=== PATIENT | male | born 1970 | race Caucasian/White ===

== ENCOUNTER 2021-10-16 06:19 | Day surgery (SDC) | payer BC ==
[2021-10-16] MEDS ORDERED: Lactated Ringers 1,000 ML IV SCH (06:30)
[2021-10-16] MEDS ORDERED: Versed 2 MG/2 ML Injection ONE (07:42)
[2021-10-16] MEDS ORDERED: DIPRIVAN 200 MG/20 ML IV ONE ×2 (07:42→08:10)
[2021-10-16 09:12] VITALS: BP 129/85; PULSE 63; O2SAT 98
--- NOTE | 2021-10-16 09:25 | OP ---
SURGERY DATE/TIME: 10/16/2021 0800 PREOPERATIVE DIAGNOSIS: Rectal bleeding. POSTOPERATIVE DIAGNOSES: 1) Normal EGD. 2) Mild diverticulosis. PROCEDURES: 1) EGD. 2) Colonoscopy. SURGEON: Wilder Watson M.D. ANESTHESIA: MAC by Diego Jay CRNA. ESTIMATED BLOOD LOSS: None. SPECIMENS: None. DESCRIPTION OF PROCEDURE: After informed written consent was obtained, the patient was taken to the endoscopy suite. He underwent monitored anesthesia and a bite block inserted. After anesthesia was titrated to desired level of consciousness, the endoscope was inserted in the posterior oropharynx. Upon direct visualization the esophagus was easily traversed and had a normal mucosal appearance. There was a normal gastroesophageal junction and upon entry into the stomach there was normal rugated gastric mucosa free of any lesions or defects. The pylorus was traversed and the first and second portions of the duodenum had a normal mucosal appearance. Upon withdrawal again all mucosal structures appeared normal. There were no ulcerations. No bleeding. No inflammation or other changes appreciable. The scope was removed and the scopes were switched. Digital rectal exam showed normal sphincter tone and no internal lesions. The scope was inserted in the rectum and sequentially the entire colonic mucosa was traversed. The level of the cecum was reached and verified with direct visualization of the ileocecal valve. Upon withdrawal careful mucosal inspection revealed scattered diverticula but no other abnormalities. Prior to withdrawal retroflexion was performed and showed no internal lesions. The patient was transferred to the recovery room in good condition.
== END 2021-10-16 09:25 | disposition home or self-care (01) ==
LOC: SDC 06:19
PROVIDERS: ATTEND Family Medicine
DX: K57.30 Diverticulosis of large intestine without perforation or abscess without bleeding (principal); E11.8 Type 2 diabetes mellitus with unspecified complications
CPT/HCPCS: 82947; J2250; J2704

== ENCOUNTER 2024-07-21 03:46 | Observation (INO) | payer OTHER ==
--- NOTE | 2024-07-21 04:11 | ERPHSYRPT ---
- History of Present Illness Time Seen by Provider: 07/21/24 04:08 Source: patient Exam Limitations: no limitations Physician History: 53-year-old male diabetic hypercholesterolemia, known coronary artery disease presents to our ED for evaluation of chest pain shortness of breath and diaphoresis that occurred earlier today. Patient states he feels a numbness across his chest. Symptoms have been problematic throughout the day. Patient had a catheterization done just over a year ago. Patient reports he had a 30% blockage and a " maker". Symptoms are mild to moderate in intensity. Patient states his symptoms were most noticeable during exertion. Patient was at work when symptoms started today. Patient otherwise feels well. He voices no other complaints or concerns at this time. Portions of this note were created with voice recognition technology. There may be grammatical, spelling, punctuation or sound alike errors Timing/Duration: today Severity: moderate Modifying Factors: Improves With: nothing Associated Symptoms: denies symptoms Allergies/Adverse Reactions: No Known Drug Allergies Allergy (Verified 07/21/24 04:15) Home Medications: Aspirin 650 mg PO DAILY 02/01/15 [History] Atorvastatin Calcium [Lipitor 40Mg] 40 mg PO DAILY 02/01/15 [History] Metoprolol Succinate 50 mg [Toprol Xl 50 MG] 25 mg PO BID 02/01/15 [History] Metformin HCl 500 mg PO BID 10/14/21 [History] Empagliflozin [Jardiance] 10 mg PO DAILY 07/21/24 [History] Hx Tetanus, Diphtheria Vaccination/Date Given: No Hx Influenza Vaccination/Date Given: No Hx Pneumococcal Vaccination/Date Given: No - Review of Systems Constitutional: No Symptoms, No Fever, No Chills Eyes: No Symptoms Ears, Nose, & Throat: No Symptoms Respiratory: No Symptoms, No Cough, No Dyspnea Cardiac: No Symptoms, No Chest Pain, No Edema, No Syncope Abdominal/Gastrointestinal: No Symptoms, No Abdominal Pain, No Nausea, No Vomiting, No Diarrhea Genitourinary Symptoms: No Symptoms, No Dysuria Musculoskeletal: No Symptoms, No Back Pain, No Neck Pain Skin: No Symptoms, No Rash Neurological: No Symptoms, No Dizziness, No Focal Weakness, No Sensory Changes Psychological: No Symptoms Endocrine: No Symptoms Hematologic/Lymphatic: No Symptoms All Other Systems: Reviewed and Negative - Past Medical History Pertinent Past Medical History: Yes Neurological History: No Pertinent History ENT History: No Pertinent History Cardiac History: Coronary Artery Disease, High Cholesterol, Hypertension Respiratory History: No Pertinent History Endocrine Medical History: No Pertinent History Musculoskeletal History: No Pertinent History GI Medical History: No Pertinent History History: No Pertinent History Psycho-Social History: No Pertinent History Male Reproductive Disorders: No Pertinent History Other Medical History: KIDNEY STONE - Past Surgical History Past Surgical History: Yes Neuro Surgical History: No Pertinent History Cardiac: Cardiac Catheterization Respiratory: No Pertinent History Gastrointestinal: No Pertinent History Genitourinary: Other Musculoskeletal: No Pertinent History Male Surgical History: No Pertinent History Other Surgical History: HEART CATH , cystoscopy with stone removal. - Social History Smoking Status: Never smoker Exposure to second hand smoke: Yes Drug Use: none Patient Lives Alone: No - Nursing Vital Signs Nursing Vital Signs: Initial Vital Signs Temperature 98.0 F 07/21/24 03:49 Pulse Rate 81 07/21/24 03:49 Respiratory Rate 16 07/21/24 03:49 Blood Pressure 138/85 07/21/24 03:49 O2 Sat by Pulse Oximetry 98 07/21/24 03:49 Pain Scale Pain Intensity 2 - Physical Exam General Appearance: no apparent distress, alert Eye Exam: PERRL/EOMI, eyes nml inspection Ears, Nose, Throat Exam: normal ENT inspection, TMs normal, pharynx normal, moist mucous membranes Neck Exam: normal inspection, non-tender, supple, full range of motion Respiratory Exam: normal breath sounds, lungs clear, airway intact, No respi ratory distress Cardiovascular Exam: regular rate/rhythm, normal heart sounds, normal peripheral pulses Gastrointestinal/Abdomen Exam: soft, normal bowel sounds, No tenderness, No mass Back Exam: normal inspection, normal range of motion, No CVA tenderness, No vertebral tenderness Extremity Exam: normal inspection, normal range of motion, pelvis stable Neurologic Exam: alert, oriented x 3, cooperative, normal mood/affect, nml cerebellar function, nml station & gait, sensation nml, No motor deficits Skin Exam: normal color, warm, dry, No rash Lymphatic Exam: No adenopathy SpO2 Interpretation: normal O2 Delivery: Room Air - Course Nursing assessment & vital signs reviewed: Yes EKG Interpreted by Me: RATE (84), Sinus Rhythm, NORMAL AXIS, NORMAL INTERVALS, NORMAL QRS - Radiology Exams Chest X-ray Interpretation: Interpreted by me (No acute findings) Ordered Tests: Active Orders 24 hr Category Date Time Status Final Inspector Balance Wheel STAT Care 07/21/24 03:56 Active EKG-ER Only STAT Care 07/21/24 03:55 Active IV Insertion STAT Care 07/21/24 03:55 Active Pulse Oximetry (ED) STAT Care 07/21/24 03:55 Active CHEST 1 VIEW (PORTABLE) Stat Exams 07/21/24 03:57 Taken CBC W DIFF Stat Lab 07/21/24 03:30 Completed CMP Stat Lab 07/21/24 03:30 Completed NT PRO BNPII Stat Lab 07/21/24 03:30 Completed TROPONIN Q4H Lab 07/21/24 03:30 Completed TROPONIN Q4H Lab 07/21/24 08:00 Ordered TROPONIN Q4H Lab 07/21/24 12:00 Ordered Transfer Order Routine Transfer 07/21/24 Ordered Medication Summary Discontinued Medications Generic Name Dose Route Start Last Admin Trade Name Freq PRN Reason Stop Dose Admin Aspirin 324 mg 07/21/24 03:55 Aspirin 81 Mg Tab.Chew PO 07/21/24 03:56 STAT ONE Lab/Rad Data: Laboratory Result Diagrams 07/21/24 03:30 07/21/24 03:30 Laboratory Results 07/21/24 07/21/24 07/21/24 Range/Units 03:30 03:30 03:30 WBC 6.4 (4.23-9.07) x10^3/uL RBC 5.42 (4.63-6.08) x10^6/uL Hgb 15.1 (13.7-17.5) g/dL Hct 44.9 (40.1-51.0) % MCV 82.8 (79.0-92.2) fL MCH 27.9 (25.7-32.2) pg MCHC 33.6 (32.3-36.5) g/dL RDW 13.3 (11.6-14.4) % Plt Count 146 L (163-337) x10^3/uL MPV 11.1 (9.4-12.4) fL Gran % 45.2 (34.0-67.9) % Immature Gran % (Auto) 0.2 (0.001-0.429) % Nucleat RBC Rel Count 0.0 (0.00-0.2) % Eos # (Auto) 0.04 (0.04-0.54) x10^3/uL Immature Gran # (Auto) 0.01 (0.001-0.031) x10^3u/L Absolute Lymphs (auto) 2.86 (1.32-3.57) x10^3/uL Absolute Monos (auto) 0.54 (0.30-0.82) x10^3/uL Absolute Nucleated RBC 0.00 (0.00-0.012) x10^3u/L Lymphocytes % 44.9 (21.8-53.1) % Monocytes % 8.5 (5.3-12.2) % Eosinophils % 0.6 L (0.8-7.0) % Basophils % 0.6 (0.2-1.2) % Absolute Granulocytes 2.88 (1.78-5.38) x10^3/uL Basophils # 0.04 (0.01-0.08) x10^3/uL Sodium 137 (135-145) mmol/L Potassium 4.0 (3.5-5.1) mmol/L Chloride 99 (98-107) mmol/L Carbon Dioxide 27 (22-30) mmol/L Anion Gap 15.8 H (5-15) MEQ/L BUN 25 H (9-20) mg/dL Creatinine 0.88 (0.66-1.25) mg/dL Estimated GFR 104.1 ML/MIN Glucose 149 H (74-106) mg/dL Calcium 9.7 (8.4-10.2) mg/dL Total Bilirubin 0.80 (0.2-1.3) mg/dL AST 36 (17-59) U/L ALT 43 (0-50) U/L Alkaline Phosphatase 76 (38-126) U/L Troponin I < 0.012 (0.000-0.033) ng/mL NT-Pro-B Natriuret Pep 41.2 (<300) pg/mL Serum Total Protein 8.0 (6.3-8.2) g/dL Albumin 4.8 (3.5-5.0) g/dL - Progress Progress: improved Progress Note: 53-year-old male history of coronary artery disease diabetes hypercholesterolemia presents to our emergency department for evaluation of chest pain shortness of breath and diaphoresis. Patient had a coronary catheterization done approximately a year ago. Patient states his LAD was 30% blocked. Physical exam was essentially unremarkable. EKG sinus rhythm. Initial troponin negative. Vital stable. Patient's heart score is a 4. Patient will require hospitalization for further evaluation and treatment. Portions of this note were created with voice recognition technology. There may be grammatical, spelling, punctuation or sound alike errors Complexity of problem addressed is moderate acute complicated. No critical care time. Complex of data reviewed and analyzed is extensive. Test ordered chest reviewed results analyzed and correlated clinically with history and physical exam. Risk of complication and or risk of morbidity/mortality patient management is high. Patient requires hospitalization for further evaluation and treatment. Vital stable. Time spent admit patient approximately 15 minutes. Plan of care established for shared decision making. No social determinants of health present to impede follow-up. Portions of this note were created with voice recognition technology. There may be grammatical, spelling, punctuation or sound alike errors 07/21/24 05:40 Counseled pt/family regarding: lab results, diagnosis, rad results - Departure Departure Disposition: Observation Clinical Impression: Chest pain, Acute coronary syndrome Condition: Stable Critical Care Time: No Referrals: DOLORES DOHERTY MD [Primary Care Provider] - Follow up/PCP as directed
[2024-07-21 04:16] LABS: Absolute Neutrophil Ct (ANC) 2.88 x10^3/uL (1.78-5.38); BASOPHIL % 0.6 % (0.2-1.2); Basophil (Absolute #) 0.04 x10^3/uL (0.01-0.08); Eosinophil % 0.6 % (0.8-7.0); Eosinophil (Absolute #) 0.04 x10^3/uL (0.04-0.54); Hematocrit 44.9 % (40.1-51.0); Hemoglobin 15.1 g/dL (13.7-17.5); IMMATURE GRAN # 0.01 x10^3u/L (0.001-0.031); IMMATURE GRAN % 0.2 % (0.001-0.429); Lymphocyte (Absolute #) 2.86 x10^3/uL (1.32-3.57); Lymphocytes % 44.9 % (21.8-53.1); Mean Cell Volume 82.8 fL (79.0-92.2); Mean Corpuscular Hemoglobin 27.9 pg (25.7-32.2); Mean Corpuscular Hgb Concent. 33.6 g/dL (32.3-36.5); Mean Platelet Volume 11.1 fL (9.4-12.4); Monocyte (Absolute #) 0.54 x10^3/uL (0.30-0.82); Monocytes % 8.5 % (5.3-12.2); Neutrophil % 45.2 % (34.0-67.9); Platelet Count 146 x10^3/uL (163-337); Red Blood Count 5.42 x10^6/uL (4.63-6.08); Red Cell Distribution Width 13.3 % (11.6-14.4); White Blood Count 6.4 x10^3/uL (4.23-9.07)
[2024-07-21 04:40] LABS: ALBUMIN 4.8 g/dL (3.5-5.0); ANION GAP 15.8 MEQ/L (5-15); BILIRUBIN,TOTAL 0.8 mg/dL (0.2-1.3); Calcium 9.7 mg/dL (8.4-10.2); Creatinine 1 0.88 mg/dL (0.66-1.25); EST GLOMERULAR FILTRATION RATE 104.1 ML/MIN; NT PRO BNPII 41.2 pg/mL (<300)
[2024-07-21] MEDS: BABY ASPIRIN 81 MG CHEW PO ONE (06:01)
[2024-07-21 07:02] VITALS: RESP 16
[2024-07-21] MEDS: Glucophage 500 MG PO SCH (08:16)
--- NOTE | 2024-07-21 08:51 | XRAY ---
Indication: Pain. Comparison: February 11, 2019 Portable chest remains inflated and clear. Heart not enlarged. Bony thorax intact again with degenerative changes. No new/acute findings.
[2024-07-21] MEDS ORDERED: Toprol Xl 50 MG PO SCH (10:00)
[2024-07-21] MEDS ORDERED: LIPITOR 40MG PO SCH (10:00)
[2024-07-21] MEDS ORDERED: NON-FORMULARY ITEM (Aspirin [Aspirin] 325 MG Tablet) PO SCH (10:00)
[2024-07-21] MEDS: Toprol-Xl 25MG Tablets PO SCH (10:13)
[2024-07-21] MEDS: JARDIANCE PO SCH (10:13)
[2024-07-21] MEDS: Ecotrin 325 MG PO SCH (10:13)
--- NOTE | 2024-07-21 11:02 | PCM.SSS ---
History of Present Illness - Chief Complaint Chief Complaint: Chest pain, ACS Date: 07/21/24 History of Present Illness: is a 53 year old male with PMHX diabetic hypercholesterolemia, known coronary artery disease presents. He presented to our ED on 07/21/24 for evaluation of chest pain shortness of breath and diaphoresis that occurred the previous day. Patient states he felt a numbness across his chest. 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 D/T his heart hx and family hx he felt he should come in for evaluation. Symptoms have been problematic throughout the day. Patient had a catheterization done just over a year ago. Patient reports he had a 30% blockage and a " maker". Symptoms are mild to moderate in intensity. Patient states his symptoms were most noticeable during exertion. Patient was at work when symptoms started. Patient otherwise feels well. He voices no other complaints or concerns at this time. He would like to D/C today if trops x3 neagtive. His dog hair clipper is Dr. Pandey. - Review of Systems Constitutional: No Fever, No Chills Eyes: No Symptoms Ears, Nose, & Throat: No Symptoms Respiratory: No Cough, No Short Of Breath Cardiac: Chest Pain, No Edema, No Syncope Abdominal/Gastrointestinal: No Abdominal Pain, No Nausea, No Vomiting, No Diarrhea Genitourinary Symptoms: No Dysuria Musculoskeletal: No Back Pain, No Neck Pain Skin: No Rash Neurological: No Dizziness, No Focal Weakness, No Sensory Changes Psychological: No Symptoms Endocrine: No Symptoms Hematologic/Lymphatic: No Symptoms Immunological/Allergic: No Symptoms Medications & Allergies Home Medications: Home Medication List Aspirin 650 mg PO DAILY 02/01/15 [History Confirmed 07/21/24] Atorvastatin Calcium [Lipitor 40Mg] 40 mg PO BID 02/01/15 [History Confirmed 07/21/24] Metoprolol Succinate 50 mg [Toprol Xl 50 MG] 25 mg PO BID 02/01/15 [History Confirmed 07/21/24] Metformin HCl 500 mg PO BID 10/14/21 [History Confirmed 07/21/24] Empagliflozin [Jardiance] 10 mg PO DAILY 07/21/24 [History Confirmed 07/21/24] Allergies/Adverse Reactions: Allergies Allergy/AdvReac Type Severity Reaction Status Date / Time No Known Drug Allergies Allergy Verified 07/21/24 04:15 - Past Medical History Past Medical History: Yes Neurological History: No Pertinent History ENT History: No Pertinent History Cardiac History: Coronary Artery Disease, High Cholesterol, Hypertension Respiratory History: Pneumonia Endocrine Medical History: Diabetes Type II Musculoskelatal History: No Pertinent History GI Medical History: No Pertinent History History: Other Pyscho-Social History: No Pertinent History Male Reproductive Disorders: No Pertinent History Comment: KIDNEY STONE - Past Surgical History Past Surgical History: Yes Neuro Surgical History: No Pertinent History Cardiac History: Cardiac Catheterization Respiratory Surgery: No Pertinent History GI Surgical History: No Pertinent History Genitourinary Surgical Hx: Other Musculskeletal Surgical Hx: No Pertinent History Male Surgical History: No Pertinent History Other Surgical History: HEART CATH , cystoscopy with stone removal. - Social History Smoking Status: Never smoker Exposure to second hand smoke: Yes Alcohol: Rarely Drug Use: none - Social Determinants of Health Will the patient participate in the screening: Yes Do you worry about a steady place to live?: No Do you have any problems with any of the following?: No known problems In the past 12 months,have you had to go without utilities?: No Have you or anyone in your house had to go without enough: No Transportation Issues: No Has anyone in your support network made you feel unsafe?: No Does the patient want assistance with any of the above?: No - Physical Exam Vital Signs: Vital Signs - 24 hr Temp Pulse Pulse Resp BP BP Pulse Ox 07/21/24 07:01 97.7 F 75 16 133/81 95 07/21/24 06:26 98.0 F 72 13 138/85 98 07/21/24 06:00 72 13 141/76 98 07/21/24 05:30 81 15 115/67 97 07/21/24 05:00 75 9 L 123/73 98 07/21/24 03:55 97 07/21/24 03:49 98.0 F 81 90 16 138/85 98 General Appearance: no apparent distress, alert Neurologic Exam: alert, oriented x 3, cooperative, normal mood/affect, nml cerebellar function, nml station & gait, sensation nml, No motor deficits Eye Exam: PERRL/EOMI, eyes nml inspection Ears, Nose, Throat Exam: normal ENT inspection, TMs normal, pharynx normal, moist mucous membranes Neck Exam: normal inspection, non-tender, supple, full range of motion Respiratory Exam: normal breath sounds, lungs clear, No respiratory distress Cardiovascular Exam: regular rate/rhythm, normal heart sounds, normal peripheral pulses Gastrointestinal/Abdomen Exam: soft, normal bowel sounds, No tenderness, No mass Back Exam: normal inspection, normal range of motion, No CVA tenderness, No vert ebral tenderness Extremity Exam: normal inspection, normal range of motion, pelvis stable Skin Exam: normal color, warm, dry, No rash Lymphatic Exam: No adenopathy Results - Labs Lab/Micro Results: Lab Results-Last 24 Hours 07/21/24 07/21/24 07/21/24 Range/Units 03:30 03:30 03:30 WBC 6.4 (4.23-9.07) x10^3/uL RBC 5.42 (4.63-6.08) x10^6/uL Hgb 15.1 (13.7-17.5) g/dL Hct 44.9 (40.1-51.0) % MCV 82.8 (79.0-92.2) fL MCH 27.9 (25.7-32.2) pg MCHC 33.6 (32.3-36.5) g/dL RDW 13.3 (11.6-14.4) % Plt Count 146 L (163-337) x10^3/uL MPV 11.1 (9.4-12.4) fL Gran % 45.2 (34.0-67.9) % Immature Gran % (Auto) 0.2 (0.001-0.429) % Nucleat RBC Rel Count 0.0 (0.00-0.2) % Eos # (Auto) 0.04 (0.04-0.54) x10^3/uL Immature Gran # (Auto) 0.01 (0.001-0.031) x10^3u/L Absolute Lymphs (auto) 2.86 (1.32-3.57) x10^3/uL Absolute Monos (auto) 0.54 (0.30-0.82) x10^3/uL Absolute Nucleated RBC 0.00 (0.00-0.012) x10^3u/L Lymphocytes % 44.9 (21.8-53.1) % Monocytes % 8.5 (5.3-12.2) % Eosinophils % 0.6 L (0.8-7.0) % Basophils % 0.6 (0.2-1.2) % Absolute Granulocytes 2.88 (1.78-5.38) x10^3/uL Basophils # 0.04 (0.01-0.08) x10^3/uL Sodium 137 (135-145) mmol/L Potassium 4.0 (3.5-5.1) mmol/L Chloride 99 (98-107) mmol/L Carbon Dioxide 27 (22-30) mmol/L Anion Gap 15.8 H (5-15) MEQ/L BUN 25 H (9-20) mg/dL Creatinine 0.88 (0.66-1.25) mg/dL Estimated GFR 104.1 ML/MIN Glucose 149 H (74-106) mg/dL Hemoglobin A1c (4.5-6.0) % Calcium 9.7 (8.4-10.2) mg/dL Total Bilirubin 0.80 (0.2-1.3) mg/dL AST 36 (17-59) U/L ALT 43 (0-50) U/L Alkaline Phosphatase 76 (38-126) U/L Troponin I < 0.012 (0.000-0.033) ng/mL NT-Pro-B Natriuret Pep 41.2 (<300) pg/mL Serum Total Protein 8.0 (6.3-8.2) g/dL Albumin 4.8 (3.5-5.0) g/dL 07/21/24 07/21/24 Range/Units 05:15 08:15 WBC (4.23-9.07) x10^3/uL RBC (4.63-6.08) x10^6/uL Hgb (13.7-17.5) g/dL Hct (40.1-51.0) % MCV (79.0-92.2) fL MCH (25.7-32.2) pg MCHC (32.3-36.5) g/dL RDW (11.6-14.4) % Plt Count (163-337) x10^3/uL MPV (9.4-12.4) fL Gran % (34.0-67.9) % Immature Gran % (Auto) (0.001-0.429) % Nucleat RBC Rel Count (0.00-0.2) % Eos # (Auto) (0.04-0.54) x10^3/uL Immature Gran # (Auto) (0.001-0.031) x10^3u/L Absolute Lymphs (auto) (1.32-3.57) x10^3/uL Absolute Monos (auto) (0.30-0.82) x10^3/uL Absolute Nucleated RBC (0.00-0.012) x10^3u/L Lymphocytes % (21.8-53.1) % Monocytes % (5.3-12.2) % Eosinophils % (0.8-7.0) % Basophils % (0.2-1.2) % Absolute Granulocytes (1.78-5.38) x10^3/uL Basophils # (0.01-0.08) x10^3/uL Sodium (135-145) mmol/L Potassium (3.5-5.1) mmol/L Chloride (98-107) mmol/L Carbon Dioxide (22-30) mmol/L Anion Gap (5-15) MEQ/L BUN (9-20) mg/dL Creatinine (0.66-1.25) mg/dL Estimated GFR ML/MIN Glucose (74-106) mg/dL Hemoglobin A1c 5.92 (4.5-6.0) % Calcium (8.4-10.2) mg/dL Total Bilirubin (0.2-1.3) mg/dL AST (17-59) U/L ALT (0-50) U/L Alkaline Phosphatase (38-126) U/L Troponin I < 0.012 (0.000-0.033) ng/mL NT-Pro-B Natriuret Pep (<300) pg/mL Serum Total Protein (6.3-8.2) g/dL Albumin (3.5-5.0) g/dL - Radiology Impressions Radiology Exams & Impressions: Radiology Procedures Category Date Time Status CHEST 1 VIEW (PORTABLE) Stat Exams 07/21/24 03:57 Completed Assessment/Plan (1) Chest pain Current Visit: Yes Status: Acute Assessment & Plan: - Follows Dr. Pandey - Trend trops if all negative can d/c today - EKG - Tele - CXR negative - TSH - Likely 2:2 heavy lifting at job - F/u with cardiology OP Code(s): R07.9 - CHEST PAIN, UNSPECIFIED (2) Type II diabetes mellitus Current Visit: Yes Status: Chronic Assessment & Plan: - A1C 5.92- controlled - Continue home meds - carb consistent diet (3) Hyperlipemia Current Visit: Yes Status: Acute Assessment & Plan: - Continue statin Code(s): E78.5 - HYPERLIPIDEMIA, UNSPECIFIED (4) Obesity (BMI 30.0-34.9) Current Visit: Yes Status: Acute Assessment & Plan: - advised diet and exercise control Code(s): E66.9 - OBESITY, UNSPECIFIED Hospital Summary - Hospital Course Hospital Course: is a 53 year old male with PMHX diabetic hypercholesterolemia, known coronary artery disease presents. He presented to our ED on 07/21/24 for evaluation of chest pain shortness of breath and diaphoresis that occurred the previous day. Patient states he felt a numbness across his chest. 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 D/T his heart hx and family hx he felt he should come in for evaluation. Symptoms have been problematic throughout the day. Patient had a catheterization done just over a year ago. Patient reports he had a 30% blockage and a " maker". Symptoms are mild to moderate in intensity. Patient states his symptoms were most noticeable during exertion. Patient was at work when symptoms started. Patient otherwise feels well. He voices no other complaints or concerns at this time. He would like to D/C today if trops x3 neagtive. His dog hair clipper is Dr. Pandey. - Vitals & Intake/Output Vital Signs: Vital Signs Temperature 97.7 F 07/21/24 07:01 Pulse Rate 75 07/21/24 07:01 Respiratory Rate 16 07/21/24 07:01 Blood Pressure 133/81 07/21/24 07:01 O2 Sat by Pulse Oximetry 95 07/21/24 07:01 Intake & Output: Intake & Output 07/18/24 07/19/24 07/20/24 07/21/24 11:59 11:59 11:59 11:59 Intake Total 380 Balance 380 Weight 107.7 kg - Lab Result Diagrams: 07/21/24 03:30 07/21/24 03:30 Lab Results-Last 24 Hrs: Lab Results-Last 24 Hours 07/21/24 07/21/24 07/21/24 Range/Units 03:30 03:30 03:30 WBC 6.4 (4.23-9.07) x10^3/uL RBC 5.42 (4.63-6.08) x10^6/uL Hgb 15.1 (13.7-17.5) g/dL Hct 44.9 (40.1-51.0) % MCV 82.8 (79.0-92.2) fL MCH 27.9 (25.7-32.2) pg MCHC 33.6 (32.3-36.5) g/dL RDW 13.3 (11.6-14.4) % Plt Count 146 L (163-337) x10^3/uL MPV 11.1 (9.4-12.4) fL Gran % 45.2 (34.0-67.9) % Immature Gran % (Auto) 0.2 (0.001-0.429) % Nucleat RBC Rel Count 0.0 (0.00-0.2) % Eos # (Auto) 0.04 (0.04-0.54) x10^3/uL Immature Gran # (Auto) 0.01 (0.001-0.031) x10^3u/L Absolute Lymphs (auto) 2.86 (1.32-3.57) x10^3/uL Absolute Monos (auto) 0.54 (0.30-0.82) x10^3/uL Absolute Nucleated RBC 0.00 (0.00-0.012) x10^3u/L Lymphocytes % 44.9 (21.8-53.1) % Monocytes % 8.5 (5.3-12.2) % Eosinophils % 0.6 L (0.8-7.0) % Basophils % 0.6 (0.2-1.2) % Absolute Granulocytes 2.88 (1.78-5.38) x10^3/uL Basophils # 0.04 (0.01-0.08) x10^3/uL Sodium 137 (135-145) mmol/L Potassium 4.0 (3.5-5.1) mmol/L Chloride 99 (98-107) mmol/L Carbon Dioxide 27 (22-30) mmol/L Anion Gap 15.8 H (5-15) MEQ/L BUN 25 H (9-20) mg/dL Creatinine 0.88 (0.66-1.25) mg/dL Estimated GFR 104.1 ML/MIN Glucose 149 H (74-106) mg/dL Hemoglobin A1c (4.5-6.0) % Calcium 9.7 (8.4-10.2) mg/dL Total Bilirubin 0.80 (0.2-1.3) mg/dL AST 36 (17-59) U/L ALT 43 (0-50) U/L Alkaline Phosphatase 76 (38-126) U/L Troponin I < 0.012 (0.000-0.033) ng/mL NT-Pro-B Natriuret Pep 41.2 (<300) pg/mL Serum Total Protein 8.0 (6.3-8.2) g/dL Albumin 4.8 (3.5-5.0) g/dL 07/21/24 07/21/24 Range/Units 05:15 08:15 WBC (4.23-9.07) x10^3/uL RBC (4.63-6.08) x10^6/uL Hgb (13.7-17.5) g/dL Hct (40.1-51.0) % MCV (79.0-92.2) fL MCH (25.7-32.2) pg MCHC (32.3-36.5) g/dL RDW (11.6-14.4) % Plt Count (163-337) x10^3/uL MPV (9.4-12.4) fL Gran % (34.0-67.9) % Immature Gran % (Auto) (0.001-0.429) % Nucleat RBC Rel Count (0.00-0.2) % Eos # (Auto) (0.04-0.54) x10^3/uL Immature Gran # (Auto) (0.001-0.031) x10^3u/L Absolute Lymphs (auto) (1.32-3.57) x10^3/uL Absolute Monos (auto) (0.30-0.82) x10^3/uL Absolute Nucleated RBC (0.00-0.012) x10^3u/L Lymphocytes % (21.8-53.1) % Monocytes % (5.3-12.2) % Eosinophils % (0.8-7.0) % Basophils % (0.2-1.2) % Absolute Granulocytes (1.78-5.38) x10^3/uL Basophils # (0.01-0.08) x10^3/uL Sodium (135-145) mmol/L Potassium (3.5-5.1) mmol/L Chloride (98-107) mmol/L Carbon Dioxide (22-30) mmol/L Anion Gap (5-15) MEQ/L BUN (9-20) mg/dL Creatinine (0.66-1.25) mg/dL Estimated GFR ML/MIN Glucose (74-106) mg/dL Hemoglobin A1c 5.92 (4.5-6.0) % Calcium (8.4-10.2) mg/dL Total Bilirubin (0.2-1.3) mg/dL AST (17-59) U/L ALT (0-50) U/L Alkaline Phosphatase (38-126) U/L Troponin I < 0.012 (0.000-0.033) ng/mL NT-Pro-B Natriuret Pep (<300) pg/mL Serum Total Protein (6.3-8.2) g/dL Albumin (3.5-5.0) g/dL - Radiology Exams Ordered Rad Exams-Entire Visit: Radiology Procedures Category Date Time Status CHEST 1 VIEW (PORTABLE) Stat Exams 07/21/24 03:57 Completed - Discharge Discharge Date: 07/21/24 Disposition: Home, Self-Care Condition: Stable Prescriptions: Continue Metoprolol Succinate 50 mg [Toprol Xl 50 MG] 25 mg PO BID Atorvastatin Calcium [Lipitor 40Mg] 40 mg PO BID Aspirin 650 mg PO DAILY Metformin HCl 500 mg PO BID Empagliflozin [Jardiance] 10 mg PO DAILY Instructions: Chest pain - Discharge instructions Follow up with: DOLORES DOHERTY MD [Primary Care Provider] - 08/03/24 10:45 am
[2024-07-21 11:20] VITALS: BP 129/67; PULSE 63; TEMP 97.8; O2SAT 99
== END 2024-07-21 13:32 | disposition home or self-care (01) ==
LOC: ED 03:46 → MED SURG 06:23
PROVIDERS: ADMIT Internal Medicine; ATTEND Internal Medicine
DX: R07.9 Chest pain, unspecified (principal); E11.9 Type 2 diabetes mellitus without complications; E78.5 Hyperlipidemia, unspecified; E66.9 Obesity, unspecified; I25.10 Atherosclerotic heart disease of native coronary artery without angina pectoris; R06.02 Shortness of breath; I10 Essential (primary) hypertension; Z79.899 Other long term (current) drug therapy
CPT/HCPCS: 36000; 36415; 71045; 80053; 83036; 83880; 84443; 84484; 85025; 93005; 93041; 93268; 94760; 99284; Q3014; A9270-GY; G0378

== ENCOUNTER 2024-11-18 10:31 | Emergency (ER) | payer OTHER ==
[2024-11-18 10:43] VITALS: TEMP 97.2
[2024-11-18] MEDS ORDERED: BABY ASPIRIN 81 MG CHEW ONE (10:53)
[2024-11-18] MEDS: BABY ASPIRIN 81 MG CHEW PO ONE (10:54)
--- NOTE | 2024-11-18 11:04 | ERPHSYRPT ---
- History of Present Illness Time Seen by Provider: 11/18/24 10:35 Historian: patient Exam Limitations: no limitations Patient Subjective Stated Complaint: PT HERE FOR PAIN TO CENTER OF CHEST THAT RADIATES TO LEFT AREM AND STATES HE WAS PAIN TO LEFT EYE, DENIES ANY INJURY Triage Nursing Assessment: PT ALERT, WALKED IN, RESP EASY, SKIN W/D/P. CHEST CLEAR, ABD SOFT, NO EDEMA NOTED Physician History: This is an anxious 53-year-old white male patient of Dr. Doherty and machine zipper trimmer Dr. Arora has multiple complaints including achiness in his chest. The pain pattern he reports to me is the pain is in the left upper quadrant and radiates into the central substernal region. It is an ache. He states the pain is not in his left upper extremity as reported to the nurse. He also does complain of intermittent pain in his left eye but no vision changes. Patient was seen here July 21, 2024 for chest pain and the workup showed no acute process. He was seen by his machine zipper trimmer in early July 2024 and was found to have 30% blockage in the LAD. He had a negative stress test as well. Patient has also had discussions regarding chronic intermittent chest pain with his primary care provider. On 07/21/2020 for his twelve-lead EKG shows normal sinus rhythm with a heart rate of 84 bpm and a QTc of 434. Patient has a history of hyperlipidemia, hypertension and diabetes. Timing/Duration: today Activities at Onset: none Quality: aching Location: abdomen (Per patient report to me, the pain begins in left upper quadrant then radiates into the central substernal region.) Severity of Pain-Max: mild Severity of Pain-Current: mild Modifying Factors: Improves With: nothing Associated Symptoms: denies symptoms Prior Chest Pain/Cardiac Workup: echocardiography, stress test Nitro Today/Relief: no nitro taken today Aspirin Treatment Today: provided at home (Patient medication list states aspirin 650 mg daily) Allergies/Adverse Reactions: No Known Drug Allergies Allergy (Verified 11/18/24 10:32) Home Medications: Aspirin 650 mg PO DAILY 02/01/15 [History] Atorvastatin Calcium [Lipitor 40Mg] 40 mg PO BID 02/01/15 [History] Metformin HCl 500 mg PO BID 10/14/21 [History] Empagliflozin [Jardiance] 10 mg PO DAILY 07/21/24 [History] Metoprolol Tartrate 25 mg [Lopressor 25MG Tab] 25 mg PO BID 07/21/24 [History] Hx Tetanus, Diphtheria Vaccination/Date Given: No Hx Influenza Vaccination/Date Given: No Hx Pneumococcal Vaccination/Date Given: No Immunizations Up to Date: No Travel Risk - International Travel Have you traveled outside of the country in past 3 weeks: No - Emerging Infectious Disease Are you exhibiting symptoms associated with any current EIDs: No - Review of Systems Constitutional: No Symptoms Eyes: No Symptoms Ears, Nose, & Throat: No Symptoms Respiratory: No Symptoms Cardiac: Chest Pain Abdominal/Gastrointestinal: No Symptoms Genitourinary Symptoms: No Symptoms Musculoskeletal: No Symptoms Skin: No Symptoms Neurological: No Symptoms Psychological: No Symptoms Endocrine: No Symptoms Hematologic/Lymphatic: No Symptoms Immunological/Allergic: No Symptoms All Other Systems: Reviewed and Negative - Past Medical History Pertinent Past Medical History: Yes Neurological History: No Pertinent History ENT History: No Pertinent History Cardiac History: Coronary Artery Disease, High Cholesterol, Hypertension Respiratory History: Pneumonia Endocrine Medical History: Diabetes Type II Musculoskeletal History: No Pertinent History GI Medical History: No Pertinent History History: Other Psycho-Social History: No Pertinent History Male Reproductive Disorders: No Pertinent History Other Medical History: 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 - Social History Smoking Status: Never smoker Exposure to second hand smoke: No Drug Use: none Patient Lives Alone: No - Social Determinants of Health Will the patient participate in the screening: Yes Do you worry about a steady place to live?: No Do you have any problems with any of the following?: No known problems In the past 12 months,have you had to go without utilities?: No Transportation Issues: No Has anyone in your support network made you feel unsafe?: No Have you or anyone in your house had to go without enough: No - Nursing Vital Signs Nursing Vital Signs: Initial Vital Signs Temperature 97.2 F 11/18/24 10:32 Pulse Rate 79 11/18/24 10:32 Respiratory Rate 16 11/18/24 10:32 Blood Pressure 154/96 11/18/24 10:32 O2 Sat by Pulse Oximetry 98 11/18/24 10:32 Pain Scale Pain Intensity 0 - Physical Exam General Appearance: no apparent distress, alert, anxiety Eye Exam: PERRL/EOMI, eyes nml inspection Ears, Nose, Throat Exam: normal ENT inspection, moist mucous membranes Neck Exam: normal inspection, non-tender, supple, full range of motion Respiratory Exam: normal breath sounds, chest tenderness, lungs clear, airway intact, No respiratory distress Cardiovascular Exam: regular rate/rhythm, normal heart sounds, normal peripheral pulses Gastrointestinal/Abdomen Exam: soft, normal bowel sounds, No tenderness Rectal Exam: not done Back Exam: normal inspection, normal range of motion, No CVA tenderness, No vertebral tenderness Extremity Exam: normal inspection, normal range of motion, pelvis stable Neurologic Exam: alert, oriented x 3, cooperative, preparole counseling aide II-XII nml as tested, nml cerebellar function, nml station & gait, sensation nml Skin Exam: normal color, warm, dry Lymphatic Exam: No adenopathy SpO2 Interpretation: normal SpO2: 98 O2 Delivery: Room Air - Course Nursing assessment & vital signs reviewed: Yes EKG Interpreted by Me: RATE (81), Sinus Rhythm, NORMAL AXIS, NORMAL INTERVALS, NORMAL QRS, NORMAL ST-T, Other (No acute ischemic changes. QTc is 412. No change from twelve-lead EKG dated 07/21/2024) Ordered Tests: Active Orders 24 hr Category Date Time Status Scaling Machine Operator STAT Care 11/18/24 10:38 Active EKG-ER Only STAT Care 11/18/24 10:37 Active IV Insertion STAT Care 11/18/24 10:37 Active Pulse Oximetry (ED) STAT Care 11/18/24 10:37 Active CBC W DIFF Stat Lab 11/18/24 10:55 Completed CMP Stat Lab 11/18/24 10:55 Completed D-DIMER QUANTITATIVE Stat Lab 11/18/24 10:55 Received MAGNESIUM Stat Lab 11/18/24 10:55 Completed PROTIME WITH INR Stat Lab 11/18/24 10:55 Received TROPONIN Q4H Lab 11/18/24 10:55 Completed TROPONIN Q4H Lab 11/18/24 14:45 Ordered TROPONIN Q4H Lab 11/18/24 18:45 Ordered Medication Summary Discontinued Medications Generic Name Dose Route Start Last Admin Trade Name Freq PRN Reason Stop Dose Admin Aspirin 324 mg 11/18/24 10:37 11/18/24 10:54 Aspirin 81 Mg Tab.Chew PO 11/18/24 10:38 324 mg STAT ONE Administration Aspirin Confirm 11/18/24 10:53 Aspirin 81 Mg Tab.Chew Administered 11/18/24 10:54 Dose 324 mg .ROUTE .STK-MED ONE Lab/Rad Data: Laboratory Result Diagrams 11/18/24 10:55 11/18/24 10:55 Laboratory Results 11/18/24 11/18/24 11/18/24 Range/Units 10:55 10:55 10:55 WBC 7.4 (4.23-9.07) x10^3/uL RBC 5.55 (4.63-6.08) x10^6/uL Hgb 15.6 (13.7-17.5) g/dL Hct 45.4 (40.1-51.0) % MCV 81.8 (79.0-92.2) fL MCH 28.1 (25.7-32.2) pg MCHC 34.4 (32.3-36.5) g/dL RDW 13.1 (11.6-14.4) % Plt Count 134 L (163-337) x10^3/uL MPV 11.1 (9.4-12.4) fL Gran % 57.6 (34.0-67.9) % Immature Gran % (Auto) 0.3 (0.001-0.429) % Nucleat RBC Rel Count 0.0 (0.00-0.2) % Eos # (Auto) 0.01 L (0.04-0.54) x10^3/uL Immature Gran # (Auto) 0.02 (0.001-0.031) x10^3u/L Absolute Lymphs (auto) 2.66 (1.32-3.57) x10^3/uL Absolute Monos (auto) 0.42 (0.30-0.82) x10^3/uL Absolute Nucleated RBC 0.00 (0.00-0.012) x10^3u/L Lymphocytes % 35.9 (21.8-53.1) % Monocytes % 5.7 (5.3-12.2) % Eosinophils % 0.1 L (0.8-7.0) % Basophils % 0.4 (0.2-1.2) % Absolute Granulocytes 4.26 (1.78-5.38) x10^3/uL Basophils # 0.03 (0.01-0.08) x10^3/uL Sodium 136 (135-145) mmol/L Potassium 4.8 (3.5-5.1) mmol/L Chloride 105 (98-107) mmol/L Carbon Dioxide 24 (22-30) mmol/L Anion Gap 11.9 (5-15) MEQ/L BUN 32 H (9-20) mg/dL Creatinine 0.87 (0.66-1.25) mg/dL Estimated GFR 104.5 ML/MIN Glucose 108 H (74-106) mg/dL Calcium 9.8 (8.4-10.2) mg/dL Magnesium 2.0 (1.6-2.3) mg/dL Total Bilirubin 0.80 (0.2-1.3) mg/dL AST 30 (17-59) U/L ALT 34 (0-50) U/L Alkaline Phosphatase 66 (38-126) U/L Troponin I < 0.012 (0.000-0.033) ng/mL Serum Total Protein 7.6 (6.3-8.2) g/dL Albumin 4.6 (3.5-5.0) g/dL - Progress Progress: improved, re-examined Air Movement: good Progress Note: 11/18/24 14:00 My medical decision making and the assignment of moderate complexity to this patient's medical issue today is based on review of the patient's past medical history, review of patient's medication list, review the patient drug allergy list, history present illness and physical findings on examination. The workup in this patient includes twelve-lead EKG, CBC, CMP, troponin, magnesium, PT/INR, D-dimer level. Differential diagnosis includes anxiety about health, myocardial infarction, arrhythmia, electrolyte abnormalities, pulmonary embolism I interpreted the patient's laboratory data results. Based on the laboratory data results, the patient has no acute, emergent medical issue. Blood Culture(s) Obtained: No Antibiotics given: No Counseled pt/family regarding: lab results, diagnosis, need for follow-up Medical Desision Making - Diagnostic Testing Diagnostic test were ordered, analyzed, and reviewed by me: Yes - Risk of complications Minimal Risk: Minimal risk of morbidity - Departure Departure Disposition: Home Clinical Impression: Nonspecific chest pain Condition: Stable Critical Care Time: No Referrals: DOLORES DOHERTY MD [Primary Care Provider] - Follow up/PCP as directed Additional Instructions: Take all your medications as prescribed. Call your primary care provider and machine zipper trimmer today, 11/18/2024, to make arrangements for outpatient follow-up and evaluation to be seen in the next 5 to 7 days
[2024-11-18 11:07] LABS: Absolute Neutrophil Ct (ANC) 4.26 x10^3/uL (1.78-5.38); BASOPHIL % 0.4 % (0.2-1.2); Basophil (Absolute #) 0.03 x10^3/uL (0.01-0.08); Eosinophil % 0.1 % (0.8-7.0); Eosinophil (Absolute #) 0.01 x10^3/uL (0.04-0.54); Hematocrit 45.4 % (40.1-51.0); Hemoglobin 15.6 g/dL (13.7-17.5); IMMATURE GRAN # 0.02 x10^3u/L (0.001-0.031); IMMATURE GRAN % 0.3 % (0.001-0.429); Lymphocyte (Absolute #) 2.66 x10^3/uL (1.32-3.57); Lymphocytes % 35.9 % (21.8-53.1); Mean Cell Volume 81.8 fL (79.0-92.2); Mean Corpuscular Hemoglobin 28.1 pg (25.7-32.2); Mean Corpuscular Hgb Concent. 34.4 g/dL (32.3-36.5); Mean Platelet Volume 11.1 fL (9.4-12.4); Monocyte (Absolute #) 0.42 x10^3/uL (0.30-0.82); Monocytes % 5.7 % (5.3-12.2); Neutrophil % 57.6 % (34.0-67.9); Platelet Count 134 x10^3/uL (163-337); Red Blood Count 5.55 x10^6/uL (4.63-6.08); Red Cell Distribution Width 13.1 % (11.6-14.4); White Blood Count 7.4 x10^3/uL (4.23-9.07)
[2024-11-18 11:14] LABS: ALBUMIN 4.6 g/dL (3.5-5.0); ANION GAP 11.9 MEQ/L (5-15); BILIRUBIN,TOTAL 0.8 mg/dL (0.2-1.3); Calcium 9.8 mg/dL (8.4-10.2); Creatinine 1 0.87 mg/dL (0.66-1.25); EST GLOMERULAR FILTRATION RATE 104.5 ML/MIN; Potassium 4.8 mmol/L (3.5-5.1); Total Protein 7.6 g/dL (6.3-8.2)
[2024-11-18 13:06] VITALS: PULSE 70; O2SAT 98
[2024-11-18 14:03] VITALS: BP 130/78; RESP 18
== END 2024-11-18 14:22 | disposition home or self-care (01) ==
LOC: ED 10:31
DX: R07.9 Chest pain, unspecified (principal); E78.5 Hyperlipidemia, unspecified; I10 Essential (primary) hypertension; E11.9 Type 2 diabetes mellitus without complications
CPT/HCPCS: 36415; 80053; 83735; 84484; 85025; 85379; 85610; 93005; 93041; 94760; 99284; A9270-GY

== ENCOUNTER 2025-03-26 12:16 | Emergency (ER) | payer OTHER ==
[2025-03-26 12:42] VITALS: TEMP 97
[2025-03-26] MEDS ORDERED: Sodium Chloride 0.9% 1000 ML 1,000 ML ONE (12:45)
[2025-03-26] MEDS: Sodium Chloride 0.9% 1000 ML 1,000 ML IV STA (12:45)
[2025-03-26 12:50] LABS: Hematocrit 47.7 % (40.1-51.0); Hemoglobin 17.5 g/dL (13.7-17.5); Mean Cell Volume 76.7 fL (79.0-92.2); Mean Corpuscular Hemoglobin 28.1 pg (25.7-32.2); Mean Corpuscular Hgb Concent. 36.7 g/dL (32.3-36.5); Mean Platelet Volume 11.7 fL (9.4-12.4); Platelet Count 81 x10^3/uL (163-337); Red Blood Count 6.22 x10^6/uL (4.63-6.08); Red Cell Distribution Width 12.9 % (11.6-14.4); White Blood Count 5.8 x10^3/uL (4.23-9.07)
--- NOTE | 2025-03-26 13:07 | ERPHSYRPT ---
- History of Present Illness Patient Subjective Stated Complaint: Pt. reports, "I just haven't felt good since Thursday, I feel nauseas, but I haven't vomited. I get headaches off and on and dizziness off and on. I just feel really tired and just off." Triage Nursing Assessment: Pt. ambulated to room without diff., A&Ox3, skin p/w/d, resp even unlabored, abd. soft nontender, bs + x4 quads. No edema. Physician History: Patient is 54-year-old male with significant past medical history of hypertension diabetes started feeling sick feeling since Thursday initially he was having generalized body ache some weakness spells and chills he felt little bit feverish but did not report any fever also has not not feeling well. He denies any chest pain nausea vomiting diarrhea blood in the stool or urine dizziness headache shortness of breath. Patient was taking metformin for diabetes but he stopped taking 1 month ago because he has heard lots of bad things about metformin on Internet but he started back 2 days ago. Timing/Duration: day(s) (4-5 days) Associated Symptoms: chills, headaches, malaise, weakness, No nausea, No vomiting, No abdominal pain, No shortness of breath, No heartburn, No diaphoresis, No cough, No chest pain, No fever, No loss of appetite, No rash, No syncope, No seizure Allergies/Adverse Reactions: No Known Drug Allergies Allergy (Verified 11/18/24 10:32) Home Medications: Aspirin 325 mg PO DAILY 02/01/15 [History] Atorvastatin Calcium [Lipitor 40Mg] 40 mg PO DAILY 02/01/15 [History] Metformin HCl 500 mg PO BID 10/14/21 [History] Empagliflozin [Jardiance] 10 mg PO DAILY 07/21/24 [History] Metoprolol Tartrate 25 mg [Lopressor 25MG Tab] 25 mg PO BID 07/21/24 [History] Fexofenadine HCl [Kim Allergy] 180 mg PO DAILY 03/26/25 [History] Hx Tetanus, Diphtheria Vaccination/Date Given: No Hx Influenza Vaccination/Date Given: No Hx Pneumococcal Vaccination/Date Given: No Immunizations Up to Date: No Travel Risk - International Travel Have you traveled outside of the country in past 3 weeks: No - Emerging Infectious Disease Are you exhibiting symptoms associated with any current EIDs: No - Review of Systems Constitutional: Lethargy, Malaise, Weakness, No Fever, No Chills Eyes: No Symptoms Ears, Nose, & Throat: No Symptoms Respiratory: No Cough, No Dyspnea Cardiac: No Chest Pain, No Edema, No Syncope Abdominal/Gastrointestinal: No Abdominal Pain, No Nausea, No Vomiting, No Diarrhea Genitourinary Symptoms: No Dysuria Musculoskeletal: No Back Pain, No Neck Pain, No Fall Skin: No Rash Neurological: Dizziness, Headache, No Focal Weakness, No Sensory Changes Psychological: No Symptoms Endocrine: No Symptoms All Other Systems: Reviewed and Negative - Past Medical History Pertinent Past Medical History: Yes Neurological History: No Pertinent History ENT History: No Pertinent History Cardiac History: Coronary Artery Disease, High Cholesterol, Hypertension Respiratory History: Pneumonia Endocrine Medical History: Diabetes Type II Musculoskeletal History: No Pertinent History GI Medical History: No Pertinent History History: Other Psycho-Social History: No Pertinent History Male Reproductive Disorders: No Pertinent History Other Medical History: 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 - Social History Smoking Status: Never smoker Exposure to second hand smoke: No Drug Use: none - Social Determinants of Health Will the patient participate in the screening: Yes Do you worry about a steady place to live?: No Do you have any problems with any of the following?: No known problems In the past 12 months,have you had to go without utilities?: No Transportation Issues: No Has anyone in your support network made you feel unsafe?: No Have you or anyone in your house had to go w/o enough food: No - Nursing Vital Signs Nursing Vital Signs: Initial Vital Signs Temperature 97.0 F 03/26/25 12:17 Pulse Rate 99 H 03/26/25 12:17 Respiratory Rate 18 03/26/25 12:17 Blood Pressure 133/109 03/26/25 12:17 O2 Sat by Pulse Oximetry 99 03/26/25 12:17 Pain Scale Pain Intensity 0 - Physical Exam General Appearance: no apparent distress, alert Eye Exam: PERRL/EOMI, eyes nml inspection Ears, Nose, Throat Exam: normal ENT inspection, TMs normal, pharynx normal, moist mucous membranes Neck Exam: normal inspection, non-tender, supple, full range of motion Respiratory Exam: normal breath sounds, lungs clear, No respiratory distress Cardiovascular Exam: regular rate/rhythm, normal heart sounds, normal peripheral pulses Gastrointestinal/Abdomen Exam: soft, normal bowel sounds, No tenderness, No mass Rectal Exam: deferred Back Exam: normal inspection, normal range of motion, No CVA tenderness, No vertebral tenderness Extremity Exam: normal inspection, normal range of motion, pelvis stable Neurologic Exam: alert, oriented x 3, cooperative, normal mood/affect, nml cerebellar function, nml station & gait, sensation nml, No motor deficits Skin Exam: normal color, warm, dry, No rash Lymphatic Exam: No adenopathy SpO2 Interpretation: normal SpO2: 98 O2 Delivery: Room Air - Course Nursing assessment & vital signs reviewed: Yes EKG Interpreted by Me: Sinus Rhythm Ordered Tests: Active Orders 24 hr Category Date Time Status EKG-ER Only STAT Care 03/26/25 12:32 Active CBC W DIFF Stat Lab 03/26/25 12:35 Completed CMP Stat Lab 03/26/25 12:35 Completed Manual Differential NC Stat Lab 03/26/25 12:35 Completed POCT GLUCOSE Stat Lab 03/26/25 12:30 Completed TSH [TSH, 3RD Generation] Stat Lab 03/26/25 12:35 Received UA W/RFX UR CULTURE Stat Lab 03/26/25 14:04 Ordered Medication Summary Discontinued Medications Generic Name Dose Route Start Last Admin Trade Name Elizabeth PRN Reason Stop Dose Admin Sodium Chloride 1,000 mls @ 999 mls/hr 03/26/25 12:32 03/26/25 14:02 Sodium Chloride 0.9% 1000 Ml IV 03/26/25 13:32 Infused .Q1H1M STA Infusion Sodium Chloride Confirm 03/26/25 12:45 Sodium Chloride 0.9% 1000 Ml Administered 03/26/25 12:46 Dose 1,000 mls @ ud .ROUTE .STK-MED ONE Lab/Rad Data: Laboratory Result Diagrams 03/26/25 12:35 03/26/25 12:35 Laboratory Results 03/26/25 03/26/25 03/26/25 Range/Units 12:40 12:35 12:35 WBC (4.23-9.07) x10^3/uL RBC (4.63-6.08) x10^6/uL Hgb (13.7-17.5) g/dL Hct (40.1-51.0) % MCV (79.0-92.2) fL MCH (25.7-32.2) pg MCHC (32.3-36.5) g/dL RDW (11.6-14.4) % Plt Count (163-337) x10^3/uL MPV (9.4-12.4) fL Segmented Neutrophils (34.0-67.9) % Lymphocytes (Manual) (21.8-53.1) % Monocytes (Manual) (5.3-12.2) % Platelet Estimate (NORMAL) RBC Morphology Sodium 132 L (135-145) mmol/L Potassium 4.5 (3.5-5.1) mmol/L Chloride 97 L (98-107) mmol/L Carbon Dioxide 18 L (22-30) mmol/L Anion Gap 21.4 H (5-15) MEQ/L BUN 27 H (9-20) mg/dL Creatinine 0.77 (0.66-1.25) mg/dL Estimated GFR 107.7 ML/MIN Glucose 118 H (74-106) mg/dL POC Glucometer (74 to 106) mg/dL Hemoglobin A1c 5.77 (4.5-6.0) % Calcium 9.2 (8.4-10.2) mg/dL Total Bilirubin 1.80 H (0.2-1.3) mg/dL AST 117 H (17-59) U/L ALT 120 H (0-50) U/L Alkaline Phosphatase 87 (38-126) U/L Serum Total Protein 7.5 (6.3-8.2) g/dL Albumin 4.6 (3.5-5.0) g/dL Influenza Type A Ag NEGATIVE (NEGATIVE) Influenza Type B Ag NEGATIVE (NEGATIVE) RSV (PCR) NEGATIVE (NEGATIVE) SARS-CoV-2 (PCR) NEGATIVE (NEGATIVE) 03/26/25 03/26/25 Range/Units 12:35 12:30 WBC 5.8 (4.23-9.07) x10^3/uL RBC 6.22 H (4.63-6.08) x10^6/uL Hgb 17.5 (13.7-17.5) g/dL Hct 47.7 (40.1-51.0) % MCV 76.7 L (79.0-92.2) fL MCH 28.1 (25.7-32.2) pg MCHC 36.7 H (32.3-36.5) g/dL RDW 12.9 (11.6-14.4) % Plt Count 81 L (163-337) x10^3/uL MPV 11.7 (9.4-12.4) fL Segmented Neutrophils 58 (34.0-67.9) % Lymphocytes (Manual) 31 (21.8-53.1) % Monocytes (Manual) 11 (5.3-12.2) % Platelet Estimate NORMAL (NORMAL) RBC Morphology NORMAL Sodium (135-145) mmol/L Potassium (3.5-5.1) mmol/L Chloride (98-107) mmol/L Carbon Dioxide (22-30) mmol/L Anion Gap (5-15) MEQ/L BUN (9-20) mg/dL Creatinine (0.66-1.25) mg/dL Estimated GFR ML/MIN Glucose (74-106) mg/dL POC Glucometer 113 H (74 to 106) mg/dL Hemoglobin A1c (4.5-6.0) % Calcium (8.4-10.2) mg/dL Total Bilirubin (0.2-1.3) mg/dL AST (17-59) U/L ALT (0-50) U/L Alkaline Phosphatase (38-126) U/L Serum Total Protein (6.3-8.2) g/dL Albumin (3.5-5.0) g/dL Influenza Type A Ag (NEGATIVE) Influenza Type B Ag (NEGATIVE) RSV (PCR) (NEGATIVE) SARS-CoV-2 (PCR) (NEGATIVE) - Departure Departure Disposition: Home Clinical Impression: Dizziness, nonspecific, Elevated liver function tests Type II diabetes mellitus Qualifiers: Diabetes mellitus metal inspector insulin use: without metal inspector use Diabetes mellitus complication status: with hyperglycemia Qualified Code(s): E11.65 - Type 2 diabetes mellitus with hyperglycemia Condition: Stable Critical Care Time: No Referrals: DOLORES DOHERTY MD [Primary Care Provider, [facility]] - Follow up with PCP 5 days Instructions: Liver panel Additional Instructions: Discharge/Care Plan WILLIS BAUTISTA was seen on 03/26/25 in the Emergency Room. The patient was counseled regarding Diagnosis,Lab results, Imaging studies, need for follow up and when to return to the Emergency Room. Prescriptions given: Discharge Note I have spoken with the patient and/or caregivers. I have explained the patient's condition, diagnosis and treatment plan based on the information available to me at this time. I have answered the patient's and/or caregiver's questions and addressed any concerns. The patient and/or caregivers have as good understanding of the patient's diagnosis, condition and treatment plan as can be expected at this point. The vital signs have been stable. The patient's condition is stable and appropriate for discharge from the emergency department. The patient will pursue further outpatient evaluation with the primary care physician or other designated or consulting physician as outlined in the discharge instructions. The patient and/or caregivers are agreeable to this plan of care and follow-up instructions have been explained in detail. The patient and/or caregivers have received these instruction. The patient/and or caregivers are aware that any significant change in condition or worsening of symptoms should prompt an immediate return to this or the closest emergency department or call 911. WILLIS BAUTISTA was seen on 03/26/25 n the Emergency Room. At that time you were treated for an emergent condition, during your visit Laboratory, Radiology and/or other procedures may have been ordered. It is very important that you follow-up with your Primary Care Physician DOLORES DOHERTY within the next 24-48 hours to review your Emergency Room visit and the final results of testing that was ordered. Some test results such as Urine Cultures, Blood Cultures, and other cultures if ordered will not be finalized for 24-48 hours. If you do not have a Primary Care Provider please call the medical records department at [phone] ext [phone] to obtain a copy of your results or you may sign into our patient portal to obtain these results by visiting us @ [email or web address] and completing the following steps: 1. Click on the Patient Portal link 2. Click the Patient Self Enrollment Link to complete the enrollment form and entering your 3. Once the enrollment form is completed you will receive an email with a temporary ID and password at the email address you provided. 4. Next choose a user name and password. Your user name must be at least 4 characters long and your password must be at least 4 characters long. 5. Choose a security question from the list and provide your answer to the question. If you already have signed into the Health Portal you may access your Health Care Information 15/06 by the following steps: 1. Login to our website @ [email or web address] 2. Enter your original user name and password. FAQS The [facility] Health Portal is an online tool that contains your Lab Results, Radiology Reports, Visit History, Discharge Instructions and Health Summary Lab and Radiology Results will not be available for 72 hours on the portal. The Portal is a secure site, passwords are encryted and URLs are re-written so they cannot be copied and pasted. You and authorized family members are the only ones who can access your Portal. Also there is a timeout feature that protects your information if you leave the Portal page open. If you have technical difficulty please use the Contact Us link on the page this will allow you to submit any questions you have regarding the Portal or you may contact the Medical Record Department at [phone] ext [phone].
[2025-03-26 13:08] LABS: ALBUMIN 4.6 g/dL (3.5-5.0); ANION GAP 21.4 MEQ/L (5-15); BILIRUBIN,TOTAL 1.8 mg/dL (0.2-1.3); Calcium 9.2 mg/dL (8.4-10.2); Creatinine 1 0.77 mg/dL (0.66-1.25); EST GLOMERULAR FILTRATION RATE 107.7 ML/MIN; Potassium 4.5 mmol/L (3.5-5.1); Total Protein 7.5 g/dL (6.3-8.2)
[2025-03-26 13:31] LABS: INFLUENZA A NEGATIVE (NEGATIVE); INFLUENZA B NEGATIVE (NEGATIVE); RESPIRATORY SYNCTIAL VIRUS NEGATIVE (NEGATIVE); SARS-CoV-2 Xpert Express NEGATIVE (NEGATIVE)
[2025-03-26 13:58] LABS: Lymphocytes 31 % (21.8-53.1); Monocyte 11 % (5.3-12.2); Neutrophils 58 % (34.0-67.9); Total Cells Counted 100
[2025-03-26 13:59] LABS: Platelet Estimate NORMAL (NORMAL)
[2025-03-26 14:03] VITALS: BP 125/89; PULSE 88; RESP 19
[2025-03-26 14:13] VITALS: O2SAT 98
[2025-03-26 14:31] LABS: Appearance Clear (Clear); Bacteria None Seen /HPF (None Seen); Bilirubin Negative (Negative); Blood Small (Negative); Epithelial Cells Rare /HPF (None Seen); Glucose, Urine >=1000 mg/dL (Negative); Hyaline Casts NONE SEEN /LPF (0-2); Ketones >=160 (Negative); Leukocyte Esterase Negative (Negative); Nitrite Negative (Negative); Ph 5.5 (4.6-8.0); Protein,Urine Dip 30 (Negative); RBC 0-2 /HPF (0-5); Specific Gravity >=1.030 (1.005-1.030)
[2025-03-28 08:08] LABS: HBsAg Screen Negative (Negative); HCV Ab Non Reactive (Non Reactive); Hep B Core Ab, IgM Negative (Negative)
[2025-03-28 08:09] LABS: Hep A Ab, IgM Negative (Negative)
== END 2025-03-26 14:50 | disposition home or self-care (01) ==
LOC: ED 12:16
DX: R42 Dizziness and giddiness (principal); R94.5 Abnormal results of liver function studies; E11.65 Type 2 diabetes mellitus with hyperglycemia; R53.83 Other fatigue; M79.10 Myalgia, unspecified site; Z79.84 Long term (current) use of oral hypoglycemic drugs; Z79.899 Other long term (current) drug therapy
CPT/HCPCS: 0241U; 36415; 80053; 80074; 81001; 82947; 83036; 84443; 85025; 93005; 96360; 99284; 96374